=== PATIENT | female | born 1975 | race American Indian/Alaskan Native ===

== ENCOUNTER 2017-05-16 17:28 | Emergency (ER) | payer BC ==
--- NOTE | 2017-05-16 20:26 | Emergency Department Report ---
HPI - General Chief Complaint: Extremity Injury, Upper Time Seen by Provider: 05/16/17 20:13 - HPI HPI: Patient is a 41-year-old female with a History of TMJ who presents to ED complaining of lower jaw of the left. Patient states earlier this afternoon around 4 PM she was yawning when her left jaw locked into place. Patient states she has been unable to move eat talk normally. She states this has happened once last year and it was popped back into place. She denies any trauma, fall or injuries to the head or face. ED Past Medical Hx - Past Medical History Hx Hypertension: Yes Hx Diabetes: Yes (not on meds) Additional medical history: TMJ,elevated cholesterol - Surgical History Hx Appendectomy: Yes Additional Surgical History: hysterectomy - Social History Smoking Status: Never Smoker Substance Use Type: None - Medications Home Medications: Home Medications Medication Instructions Recorded Confirmed Last Taken Type HYDROcodone/APAP 5-325 [[place] 1 each PO Q6HR PRN #10 tablet 05/17/17 Unknown Rx 5/325] ED Review of Systems ROS: Stated complaint: DISLOCATED JAW Other details as noted in HPI Constitutional: denies: chills, fever Eyes: denies: eye pain, eye discharge, vision change ENT: denies: ear pain, throat pain Respiratory: denies: cough, shortness of breath, wheezing Cardiovascular: denies: chest pain, palpitations Endocrine: no symptoms reported Gastrointestinal: denies: abdominal pain, nausea, diarrhea Genitourinary: denies: urgency, dysuria, discharge Musculoskeletal: denies: back pain, joint swelling, arthralgia Skin: denies: rash, lesions Neurological: denies: headache, weakness, paresthesias Psychiatric: denies: anxiety, depression Hematological/Lymphatic: denies: easy bleeding, easy bruising Physical Exam - Physical Exam Vital Signs: Vital Signs 05/16/17 17:31 Temperature 98.3 F Pulse Rate 91 H Respiratory 18 Rate Blood Pressure 157/98 O2 Sat by Pulse 98 Oximetry Physical Exam: GENERAL: Alert and oriented x3, no apparent distress, Normal Gait, atraumatic. HEAD: Head is normocephalic and a-traumatic. EARS: symetrical, atraumatic, non tender, ear canal clear and moderate cerumen, tympanic membrance non inflamed. gross auditory nml bilaterally. NOSE: Nose symetrical, Nontender,Nares appeared normal. MOUTH:Mouth is well hydrated and without lesions. Tonsils nonerythematous or swollen, Uvula midline, Tongue not elevated. Mucous membranes are moist. Posterior pharynx clear, no exudate or lesions. Patent airways. Mild left joint tenderness. Jaw titled to right. NECK: Supple. Non edematous, No lymphadenopathy or thyromegaly. No C-spine tenderness LUNGS: Symetrical with respiration, No wheezing, no rales or crackles, CTAB. HEART: S1, S2 present, regular rate and rhythm without murmur, no rubs, no gallops. Non tender to palpation SKIN: Warm and dry, No lesions, No ulceration or induration present. ED Course Vital Signs 05/16/17 17:31 Temperature 98.3 F Pulse Rate 91 H Respiratory 18 Rate Blood Pressure 157/98 O2 Sat by Pulse 98 Oximetry ED Medical Decision Making - Radiology Data Radiology results: report reviewed, image reviewed FINAL REPORT PROCEDURE: CT FACIAL BONES WO CON TECHNIQUE: Computerized tomography of the facial bones and soft tissues with axial and coronal sections performed from the cranial aspect of the frontal sinuses to the caudal portion of the mandible without contrast material. HISTORY: left jaw pain/states dislocation COMPARISON: No prior studies are available for comparison. FINDINGS: Bones: No acute fracture. Paranasal sinuses: Mucosal thickening is noted involving bilateral maxillary sinuses with the polyp formation. Mild degree mucosal thickening is noted involving the right ethmoid air cells. Bilateral mastoid air cells are clear.. Soft tissues: No significant abnormality. Other: There is dislocation of left temporomandibular joint anteriorly without any evidence of underlying fracture.. IMPRESSION: Anterior dislocation of left temporomandibular joint. Bilateral maxillary and right ethmoid chronic sinusitis. Transcribed By: [facility] [place] Dictated By: PHILIPP HERNANDEZ Electronically Authenticated By: PHILIPP HERNANDEZ Signed Date/Time: 05/16/171903 - Medical Decision Making 41-year-old female presents with left anterior temporomandibular dislocation ED course: Patient received Tylenol with codeine. CT of the facial bone shows reported above She is not drooling, unable to fully open mouth, clear airways, no airway compromise. Mandibular reduction attempted by myself. Unable to reduce dislocation. Patient became very comfortable and did not want to continue with the reduction Discussed case with Dr. Jean Benitez attending physician. Patient will be moved to the main side for conscious sedation and reduction. Critical care attestation.: If time is entered above; I have spent that time in minutes in the direct care of this critically ill patient, excluding procedure time. ED Disposition Clinical Impression: Jaw dislocation Qualifiers: Encounter type: initial encounter Qualified Code(s): S03.00XA - Dislocation of jaw, unspecified side, initial encounter Disposition: TO HOME OR SELFCARE Is pt being admited?: No Does the pt Need Aspirin: No Condition: Stable Instructions: Mandibular Dislocation (ED) Additional Instructions: Please try and avoid opening your mouth wide or any large yawns. Return to the emergency department with any worsening of your symptoms or any acute distress. You have been prescribed a medication that is sedating and therefore should not be taken prior to driving, working, and responsible for children and in no way should be mixed with alcohol of any quantity. Prescriptions: HYDROcodone/APAP 5-325 [[place] 5/325] 1 each PO Q6HR PRN #10 tablet PRN Reason: Pain Referrals: AURELIO RIGGINS DDS [Staff Physician] - 3-5 Days JOE SALCIDO DDS [Referring] - 3-5 Days
[2017-05-16] MEDS ORDERED: TYLENOL/CODEINE PO ONE (20:29)
--- NOTE | 2017-05-16 21:48 | XRay Report ---
FINAL REPORT PROCEDURE: XR MANDIBLE PANOREX TECHNIQUE: Panorex view of the teeth, mouth, and mandible. HISTORY: jaw pain COMPARISON: No prior studies are available for comparison. FINDINGS: No acute fracture is seen. There is possible lucency surrounding the root of the 1st right mandibular premolar. IMPRESSION: There may be periapical lucency at the root of the right mandibular 1st premolar. If this is the site of pain, findings could be related to periapical abscess. Otherwise this may be a chronic appearance or artifactual.
[2017-05-16] MEDS ORDERED: NORCO 5/325 PO ONE (22:43)
--- NOTE | 2017-05-16 23:08 | Cat Scan Report ---
FINAL REPORT PROCEDURE: CT FACIAL BONES WO CON TECHNIQUE: Computerized tomography of the facial bones and soft tissues with axial and coronal sections performed from the cranial aspect of the frontal sinuses to the caudal portion of the mandible without contrast material. HISTORY: left jaw pain/states dislocation COMPARISON: No prior studies are available for comparison. FINDINGS: Bones: No acute fracture. Paranasal sinuses: Mucosal thickening is noted involving bilateral maxillary sinuses with the polyp formation. Mild degree mucosal thickening is noted involving the right ethmoid air cells. Bilateral mastoid air cells are clear.. Soft tissues: No significant abnormality. Other: There is dislocation of left temporomandibular joint anteriorly without any evidence of underlying fracture.. IMPRESSION: Anterior dislocation of left temporomandibular joint. Bilateral maxillary and right ethmoid chronic sinusitis.
[2017-05-17] MEDS ORDERED: KETALAR IV ONE (01:28)
[2017-05-17] MEDS ORDERED: DIPRIVAN 10 MG/ML IV ONE (01:29)
--- NOTE | 2017-05-17 01:30 | Emergency Department Report ---
HPI - General Chief Complaint: Extremity Injury, Upper Time Seen by Provider: 05/16/17 20:13 - HPI HPI: 41-year-old female presents to the emergency department with left-sided jaw and face pain and inability to fully close her mouth. She has a history of TMJ but also says that there is a history of some jaw dislocation that has been reduced multiple times in the past. This afternoon she was yawning and feels like it got stuck. She denies any neck pain, chest pain, shortness of breath but does have some trouble swallowing secondary to her inability to close her mouth. She did not take anything for her symptoms. Presentation. She has a history of diabetes, hypertension, hyperlipidemia. ED Past Medical Hx - Past Medical History Hx Hypertension: Yes Hx Diabetes: Yes (not on meds) Additional medical history: TMJ,elevated cholesterol - Surgical History Hx Appendectomy: Yes Additional Surgical History: hysterectomy - Social History Smoking Status: Never Smoker Substance Use Type: None - Medications Home Medications: Home Medications Medication Instructions Recorded Confirmed Last Taken Type HYDROcodone/APAP 5-325 [[place] 1 each PO Q6HR PRN #10 tablet 05/17/17 Unknown Rx 5/325] ED Review of Systems ROS: Stated complaint: DISLOCATED JAW Other details as noted in HPI Constitutional: denies: chills, fever Eyes: denies: eye pain, eye discharge, vision change ENT: denies: ear pain, throat pain Respiratory: denies: cough, shortness of breath, wheezing Cardiovascular: denies: chest pain, palpitations Endocrine: no symptoms reported Gastrointestinal: denies: abdominal pain, nausea, diarrhea Genitourinary: denies: urgency, dysuria, discharge Musculoskeletal: denies: back pain, joint swelling, arthralgia Skin: denies: rash, lesions Neurological: denies: headache, weakness, paresthesias Psychiatric: denies: anxiety, depression Hematological/Lymphatic: denies: easy bleeding, easy bruising Physical Exam - Physical Exam Vital Signs: Vital Signs 05/16/17 17:31 Temperature 98.3 F Pulse Rate 91 H Respiratory 18 Rate Blood Pressure 157/98 O2 Sat by Pulse 98 Oximetry Physical Exam: GENERAL: The patient is well-developed well-nourished. HENT: Normocephalic. Atraumatic. Patient has moist mucous membranes. She is unable to fully close her mouth and then remains about a 1-2 cm gap when she attempts to close her mouth. Unable to fully open her mouth as well. There is some tenderness to palpation towards the left mandibular joint with concern for dislocation. No drooling. EYES: Extraocular motions are intact. Pupils equal reactive to light bilaterally. NECK: Supple. Trachea is midline. CHEST/LUNGS: Clear to auscultation. There is no respiratory distress noted. HEART/CARDIOVASCULAR: Regular. There is no tachycardia. There is no murmur. ABDOMEN: Abdomen is soft, nontender. Patient has normal bowel sounds. SKIN: Skin is warm and dry. NEURO: The patient is awake, alert, and oriented. The patient is cooperative. The patient has no focal neurologic deficits. The patient has normal speech. MUSCULOSKELETAL: There is no tenderness or deformity. There is no limitation range of motion. There is no evidence of acute injury. ED Course Vital Signs 05/16/17 17:31 Temperature 98.3 F Pulse Rate 91 H Respiratory 18 Rate Blood Pressure 157/98 O2 Sat by Pulse 98 Oximetry ED Medical Decision Making - Radiology Data Radiology results: report reviewed, image reviewed interpreted by me: Mandibular x-rays shows appropriate reduction of the mandible within the temporomandibular joint. PROCEDURE: CT FACIAL BONES WO CON TECHNIQUE: Computerized tomography of the facial bones and soft tissues with axial and coronal sections performed from the cranial aspect of the frontal sinuses to the caudal portion of the mandible without contrast material. HISTORY: left jaw pain/states dislocation COMPARISON: No prior studies are available for comparison. FINDINGS: Bones: No acute fracture. Paranasal sinuses: Mucosal thickening is noted involving bilateral maxillary sinuses with the polyp formation. Mild degree mucosal thickening is noted involving the right ethmoid air cells. Bilateral mastoid air cells are clear.. Soft tissues: No significant abnormality. Other: There is dislocation of left temporomandibular joint anteriorly without any evidence of underlying fracture.. IMPRESSION: Anterior dislocation of left temporomandibular joint. Bilateral maxillary and right ethmoid chronic sinusitis. Transcribed By: [facility] [place] Dictated By: PHILIPP HERNANDEZ Electronically Authenticated By: PHILIPP HERNANDEZ Signed Date/Time: 05/16/17 190 - Medical Decision Making Patient presents with left mandibular pain and inability to fully open or close her mouth. She has previous history of multiple jaw dislocations. Originally the patient was seen by the mid-level provider but I saw the patient with her as well and then once again within the main emergency department. The original x-ray was read by radiology as normal. However the left mandible appeared slightly dislocated when I reviewed the x-ray and with the patient's clinical presentation we decided to do a CT scan of the face that resulted as a left anterior dislocation of the left temporomandibular joint. The patient could not tolerate any type of reduction without conscious sedation and was moved to the main emergency department side. As we were getting ready to get the medications for conscious sedation the joint appeared to spontaneously reduce. A repeat mandibular x-ray was done that showed appropriate position of the temporomandibular joint showing reduction. Patient will be discharged home with a very small amount of pain medication and referrals for oral maxillofacial surgery. - Differential Diagnosis TMJ, jaw dislocation, bruxism Critical Care Time: No Critical care attestation.: If time is entered above; I have spent that time in minutes in the direct care of this critically ill patient, excluding procedure time. ED Disposition Clinical Impression: Jaw dislocation Qualifiers: Encounter type: initial encounter Qualified Code(s): S03.00XA - Dislocation of jaw, unspecified side, initial encounter Disposition: - TO HOME OR SELFCARE Is pt being admited?: No Condition: Stable Instructions: Mandibular Dislocation (ED) Additional Instructions: Please try and avoid opening your mouth wide or any large yawns. Return to the emergency department with any worsening of your symptoms or any acute distress. You have been prescribed a medication that is sedating and therefore should not be taken prior to driving, working, and responsible for children and in no way should be mixed with alcohol of any quantity. Prescriptions: HYDROcodone/APAP 5-325 [[place] 5/325] 1 each PO Q6HR PRN #10 tablet PRN Reason: Pain Referrals: JOE SALCIDO DDS [Referring] - 3-5 Days AURELIO RIGGINS DDS [Staff Physician] - 3-5 Days Time of Disposition: 02:56
[2017-05-17 01:42] VITALS: BP 144/85
[2017-05-17] MEDS ORDERED: KETALAR ONE (01:44)
--- NOTE | 2017-05-17 02:49 | XRay Report ---
FINAL REPORT PROCEDURE: XR MANDIBLE 4+V TECHNIQUE: Mandible complete, minimum of 4 views, including PA, lateral, [place], and both oblique projections. HISTORY: reduction of left mandibular dislocation? COMPARISON: No prior studies are available for comparison. FINDINGS: Bone mineralization: Normal. Fractures: None. Paranasal sinuses: Clear. IMPRESSION: Normal Examination.
== END 2017-05-17 03:11 | disposition home or self-care (01) ==
LOC: ED 17:28
DX: S03.00XA Dislocation of jaw, unspecified side, initial encounter (principal); I10 Essential (primary) hypertension; E11.9 Type 2 diabetes mellitus without complications; E78.00 Pure hypercholesterolemia, unspecified; X50.1XXA Overexertion from prolonged static or awkward postures, initial encounter; Y93.89 Activity, other specified; Y92.89 Other specified places as the place of occurrence of the external cause; Y99.8 Other external cause status
CPT/HCPCS: 70110; 70355; 70486; 99284; J2704

== ENCOUNTER 2017-06-27 12:40 | Outpatient (CLI) | payer BC ==
--- NOTE | 2017-06-27 13:22 | XRay Report ---
ROUTINE CHEST, TWO VIEWS: HISTORY: Cough, fever. No comparison. Subtle patchy infiltrate is suspected in the lingula. The right lung is clear. No pleural effusion or pneumothorax. Normal heart and mediastinal structures. Normal bony thorax. IMPRESSION: Early lingular pneumonia.
== END 2017-06-27 12:41 | disposition home or self-care (01) ==
LOC: XRAY 12:40
PROVIDERS: ATTEND Nurse Practitioner
DX: J18.8 Other pneumonia, unspecified organism (principal); R50.9 Fever, unspecified
CPT/HCPCS: 71046

== ENCOUNTER 2017-06-27 22:52 | Inpatient (IN) | payer BC ==
[2017-06-28 00:22] LABS: Basophils # (Auto) 0.1 K/mm3 (0.0-0.1); Basophils % (Auto) 0.9 % (0.0-1.8); Eosinophils # (Auto) 0.1 K/mm3 (0.0-0.4); Eosinophils % (Auto) 1.3 % (0.0-4.3); Hematocrit 40.3 % (30.3-42.9); Hemoglobin 13.7 gm/dl (10.1-14.3); Lymphocytes # (Auto) 2.9 K/mm3 (1.2-5.4); Mean Corpuscular HGB Conc 34 % (30-34); Mean Corpuscular Hemoglobin 29 pg (28-32); Mean Corpuscular Volume 84 fl (79-97); Monocytes # (Auto) 0.8 K/mm3 (0.0-0.8); Monocytes % (Auto) 9.9 % (0.0-7.3); Platelet Count 219 K/mm3 (140-440); Red Cell Distribution Width 13.9 % (13.2-15.2)
--- NOTE | 2017-06-28 00:22 | XRay Report ---
FINAL REPORT EXAM: XR CHEST ROUTINE 2V HISTORY: Shortness of breath COMPARISON: None available. FINDINGS:: Frontal and lateral views of the chest obtained. Cardiac silhouette is within normal limits. Patchy airspace opacities left mid to lower lung compatible with pneumonia. No pleural effusion or pneumothorax. IMPRESSION:: Patchy airspace opacities left mid to lower lung.
[2017-06-28 00:33] LABS: BUN/Creatinine Ratio 14; Blood Urea Nitrogen 11 mg/dL (7-17); Hemolysis Index 6
[2017-06-28] MEDS ORDERED: DECADRON IM ONE (10:29)
[2017-06-28] MEDS ORDERED: DUONEB *Not for PRN Use IH ONE (10:34)
[2017-06-28] MEDS ORDERED: LEVAQUIN 750MG/150ML 750 MG/150 ML BAG IV ONE (12:29)
[2017-06-28] MEDS ORDERED: NACL 0.9% 1000 ML 1,000 ML IV ONE (12:29)
[2017-06-28] MEDS ORDERED: NORCO 7.5/325 PO ONE (12:30)
--- NOTE | 2017-06-28 12:39 | Emergency Department Report ---
ED Shortness of Breath HPI - General Chief Complaint: Dyspnea/Respdistress Stated Complaint: CHILLS; FEVER; SOB; SEEN EARLIER TODAY Time Seen by Provider: 06/28/17 10:13 Source: patient Mode of arrival: Ambulatory Limitations: No Limitations - History of Present Illness Initial Comments: Patient is a 41-year-old [place] female presenting with 3 days of cough, congestion and chest pain. Patient states chest pain is aching pain in the left side. Patient states she's had a cough that also is painful. Patient states she has a productive cough. Patient denies nausea vomiting diarrhea. Patient states she has had some subjective fevers but has not taken her temperature. Patient saw her primary care physician yesterday and was started on Levaquin presumptively. Patient states she is not feeling improved and came in for evaluation Severity: moderate Pain Scale: 7 - Related Data Previous Rx's Medication Instructions Recorded Last Taken Type HYDROcodone/APAP 5-325 [[place] 1 each PO Q6HR PRN #10 tablet 05/17/17 Unknown Rx 5/325] Allergies Allergy/AdvReac Type Severity Reaction Status Date / Time NSAIDS (Non-Steroidal Allergy Angioedema Verified 05/16/17 17:34 Anti-Inflamma ED Review of Systems ROS: Stated complaint: CHILLS; FEVER; SOB; SEEN EARLIER TODAY Other details as noted in HPI Comment: All other systems reviewed and negative ED Past Medical Hx - Past Medical History Previous Medical History?: Yes Hx Hypertension: Yes Hx Diabetes: Yes (not on meds) Additional medical history: TMJ,elevated cholesterol - Surgical History Past Surgical History?: Yes Hx Appendectomy: Yes Additional Surgical History: hysterectomy 2011 - Social History Smoking Status: Never Smoker Substance Use Type: None - Medications Home Medications: Home Medications Medication Instructions Recorded Confirmed Last Taken Type HYDROcodone/APAP 5-325 [[place] 1 each PO Q6HR PRN #10 tablet 05/17/17 Unknown Rx 5/325] ED Physical Exam - General Limitations: No Limitations General appearance: alert, in no apparent distress - Head Head exam: Present: atraumatic, normocephalic - Eye Eye exam: Present: normal appearance - ENT ENT exam: Present: mucous membranes moist - Neck Neck exam: Present: normal inspection - Respiratory Respiratory exam: Present: normal lung sounds bilaterally, rhonchi. Absent: respiratory distress, wheezes, rales - Cardiovascular Cardiovascular Exam: Present: regular rate, normal rhythm. Absent: systolic murmur, diastolic murmur, rubs, gallop - GI/Abdominal GI/Abdominal exam: Present: soft, normal bowel sounds. Absent: distended, tenderness, guarding - Extremities Exam Extremities exam: Present: normal inspection - Back Exam Back exam: Present: normal inspection - Neurological Exam Neurological exam: Present: alert, oriented X3 - Psychiatric Psychiatric exam: Present: normal affect, normal mood - Skin Skin exam: Present: warm, dry, intact, normal color. Absent: rash ED Course Vital Signs 06/27/17 06/28/17 06/28/17 23:44 03:50 10:56 Temperature 99 F 99.4 F Pulse Rate 100 H 98 H Pulse Rate [ Bilateral Throughout] Respiratory 18 14 Rate Respiratory Rate [Bilateral Throughout] Blood Pressure 147/97 145/86 O2 Sat by Pulse 95 95 96 Oximetry 06/28/17 06/28/17 06/28/17 10:58 11:00 11:12 Temperature 99.4 F Pulse Rate 90 Pulse Rate [ Bilateral Throughout] Respiratory 29 H 26 H Rate Respiratory Rate [Bilateral Throughout] Blood Pressure 126/74 O2 Sat by Pulse 90 95 Oximetry 06/28/17 06/28/17 06/28/17 11:15 11:31 11:44 Temperature Pulse Rate 90 99 H Pulse Rate [ 90 Bilateral Throughout] Respiratory 26 H 31 H Rate Respiratory 29 H Rate [Bilateral Throughout] Blood Pressure 127/76 127/76 O2 Sat by Pulse 88 89 Oximetry 06/28/17 06/28/17 06/28/17 11:45 11:56 12:00 Temperature Pulse Rate 90 89 Pulse Rate [ 92 H Bilateral Throughout] Respiratory 28 H 27 H Rate Respiratory 28 H Rate [Bilateral Throughout] Blood Pressure 127/76 123/79 O2 Sat by Pulse 91 90 Oximetry ED Medical Decision Making - Lab Data Result diagrams: 06/28/17 00:13 06/28/17 00:13 Lab Results 06/28/17 06/28/17 06/28/17 Range/Units 00:13 00:13 00:13 WBC 8.3 (4.5-11.0) K/mm3 RBC 4.80 (3.65-5.03) M/mm3 Hgb 13.7 (10.1-14.3) gm/dl Hct 40.3 (30.3-42.9) % MCV 84 (79-97) fl MCH 29 (28-32) pg MCHC 34 (30-34) % RDW 13.9 (13.2-15.2) % Plt Count 219 (140-440) K/mm3 Lymph % (Auto) 35.0 (13.4-35.0) % [place] % (Auto) 9.9 H (0.0-7.3) % Eos % (Auto) 1.3 (0.0-4.3) % Baso % (Auto) 0.9 (0.0-1.8) % Lymph # 2.9 (1.2-5.4) K/mm3 [place] # 0.8 (0.0-0.8) K/mm3 Eos # 0.1 (0.0-0.4) K/mm3 Baso # 0.1 (0.0-0.1) K/mm3 Seg Neutrophils % 52.9 (40.0-70.0) % Seg Neutrophils # 4.4 (1.8-7.7) K/mm3 Sodium 132 L (137-145) mmol/L Potassium 3.8 (3.6-5.0) mmol/L Chloride 93.7 L (98-107) mmol/L Carbon Dioxide 23 (22-30) mmol/L Anion Gap 19 mmol/L BUN 11 (7-17) mg/dL Creatinine 0.8 (0.7-1.2) mg/dL Estimated GFR > 60 ml/min BUN/Creatinine Ratio 14 % Glucose 108 H (65-100) mg/dL Calcium 9.0 (8.4-10.2) mg/dL HCG, Qual Negative (Negative) - Radiology Data Radiology results: report reviewed LLL infiltration - Medical Decision Making Patient is a 41-year-old female who is presenting with shortness of breath and chest discomfort on the left side. Patient was diagnosed with pneumonia here in the hospital. Patient Levaquin for the past 2 days as an outpatient for suspected pneumonia by her primary care physician. Patient initially did have a heart rate above 90 however respiratory rate did not elevate until 11 AM. Patient with ambulation has a O2 sat drops into the high 80s. Patient was placed on sepsis protocol was given IV fluids dose Levaquin and blood cultures and lactic acid been ordered. Patient will be admitted to the hospitalist Dr Potter. Critical care attestation.: If time is entered above; I have spent that time in minutes in the direct care of this critically ill patient, excluding procedure time. ED Disposition Clinical Impression: Pneumonia Qualifiers: Pneumonia type: due to unspecified organism Laterality: left Lung location: lower lobe of lung Qualified Code(s): J18.1 - Lobar pneumonia, unspecified organism Disposition: OP ADMIT IP TO THIS HOSP Is pt being admited?: Yes Does the pt Need Aspirin: No Condition: Stable Instructions: Bacterial Pneumonia (ED) Referrals: ZANE LOZANO NP [Primary Care Provider] - 3-5 Days
--- NOTE | 2017-06-28 23:06 | History and Physical Report ---
History of Present Illness Date of examination: 06/28/17 Date of admission: 06/28/17 12:43 Chief complaint: Chief complaint: Cough and fever History of present illness: History of Present Illness 41-year-old female with past medical history of hypertension and borderline diabetes comes in for cough congestion and fever of 3 days' duration. Patient has a right-sided chest pain secondary to cough. Patient has productive cough. Patient saw her primary care physician and was started on Levaquin yesterday. Vision feels the same. No body aches. Past Medical History Previous Medical History?: Yes Hx Hypertension: Yes Hx Diabetes: Borderline Additional medical history: TMJ,elevated cholesterol Surgical History Past Surgical History?: Yes Hx Appendectomy: Yes Additional Surgical History: hysterectomy 2011 Social History Smoking Status: Never Smoker Substance Use Type: None Family history Hypertension - Medications Home Medications: Home Medications Medication Instructions Recorded Confirmed Last Taken Type HYDROcodone/APAP 5-325 [[place] 1 each PO Q6HR PRN #10 tablet 05/17/17 Unknown Rx 5/325] Medications and Allergies Allergies Allergy/AdvReac Type Severity Reaction Status Date / Time NSAIDS (Non-Steroidal Allergy Angioedema Verified 05/16/17 17:34 Anti-Inflamma Home Medications Medication Instructions Recorded Confirmed Last Taken Type Levocetirizine Dihydrochloride 5 mg PO QHS 06/28/17 06/28/17 06/27/17 History [Xyzal] Metformin HCl [Metformin HCl ER] 500 mg PO BID 06/28/17 06/28/17 06/27/17 History Montelukast [Singulair] 10 mg PO QPM 06/28/17 06/28/17 06/27/17 History Ramipril 2.5 mg PO DAILY 06/28/17 06/28/17 06/27/17 History Ranitidine HCl [Zantac 300 MG TAB] 300 mg PO QPM 06/28/17 06/28/17 06/27/17 History Rosuvastatin (Nf) [Crestor] 10 mg PO QHS 06/28/17 06/28/17 06/27/17 History amLODIPine [Norvasc] 10 mg PO DAILY 06/28/17 06/28/17 06/27/17 History Active Meds: Active Medications Pneumococcal Polyvalent Vaccine (Pneumovax 23) 0.5 ml IM .ONCE ONE Stop: 06/29/17 12:01 Review of Systems All systems: negative Constitutional: fever, chills, fatigue, poor appetite Ears, nose, mouth and throat: no dysphagia, no hoarseness, no sore throat, no swelling in mouth Breasts: deferred Cardiovascular: no chest pain, no orthopnea, no palpitations, no rapid/ irregular heart beat, no edema, no syncope, no lightheadedness, no shortness of breath Respiratory: pain on inspiration, no cough with sputum, no congestion, no wheezing Genitourinary Female: no dysuria, no urinary frequency, no urgency Menstruation: currently menstrual Rectal: no pain Musculoskeletal: no neck stiffness, no neck pain, no shooting arm pain, no arm numbness/tingling, no low back pain Integumentary: no rash, no pruritis, no redness, no sores, no wounds Neurological: no tingling, no seizures, no syncope Psychiatric: no anxiety, no memory loss, no change in sleep habits Endocrine: no cold intolerance, no heat intolerance, no polyphagia, no excessive thirst Hematologic/Lymphatic: no easy bruising, no easy bleeding Allergic/Immunologic: wheezing, no urticaria, no allergic rhinitis Exam - Constitutional Vitals: Temp Pulse Resp BP Pulse Ox 99.4 F 86 28 H 119/64 98 06/28/17 10:58 06/28/17 15:00 06/28/17 15:00 06/28/17 15:00 06/28/17 15:00 General appearance: Present: no acute distress, well-nourished - EENT Eyes: Present: PERRL ENT: hearing intact, clear oral mucosa - Neck Neck: Present: supple, normal ROM - Respiratory Respiratory effort: normal Respiratory: bilateral: CTA, wheezing - Cardiovascular Heart rate: 76 Rhythm: regular Heart Sounds: Present: S1 & S2. Absent: rub, click - Extremities Extremities: no ischemia, pulses intact, pulses symmetrical, No edema Peripheral Pulses: within normal limits - Abdominal General gastrointestinal: Present: soft, non-tender, non-distended, normal bowel sounds Female genitourinary: Present: normal - Rectal Rectal Exam: deferred - Integumentary Integumentary: Present: clear, warm, dry - Musculoskeletal Musculoskeletal: gait normal, strength equal bilaterally - Psychiatric Psychiatric: appropriate mood/affect, intact judgment & insight - Neurologic Neurologic: CNII-XII intact, moves all extremities - Allied Health Allied health notes reviewed: nursing, case management Results - Labs CBC & Chem 7: 06/28/17 00:13 06/28/17 00:13 Labs: Laboratory Last Values WBC 8.3 K/mm3 (4.5-11.0) 06/28/17 00:13 RBC 4.80 M/mm3 (3.65-5.03) 06/28/17 00:13 Hgb 13.7 gm/dl (10.1-14.3) 06/28/17 00:13 Hct 40.3 % (30.3-42.9) 06/28/17 00:13 MCV 84 fl (79-97) 06/28/17 00:13 MCH 29 pg (28-32) 06/28/17 00:13 MCHC 34 % (30-34) 06/28/17 00:13 RDW 13.9 % (13.2-15.2) 06/28/17 00:13 Plt Count 219 K/mm3 (140-440) 06/28/17 00:13 Lymph % (Auto) 35.0 % (13.4-35.0) 06/28/17 00:13 [place] % (Auto) 9.9 % (0.0-7.3) H 06/28/17 00:13 Eos % (Auto) 1.3 % (0.0-4.3) 06/28/17 00:13 Baso % (Auto) 0.9 % (0.0-1.8) 06/28/17 00:13 Lymph # 2.9 K/mm3 (1.2-5.4) 06/28/17 00:13 [place] # 0.8 K/mm3 (0.0-0.8) 06/28/17 00:13 Eos # 0.1 K/mm3 (0.0-0.4) 06/28/17 00:13 Baso # 0.1 K/mm3 (0.0-0.1) 06/28/17 00:13 Seg Neutrophils % 52.9 % (40.0-70.0) 06/28/17 00:13 Seg Neutrophils # 4.4 K/mm3 (1.8-7.7) 06/28/17 00:13 Sodium 132 mmol/L (137-145) L 06/28/17 00:13 Potassium 3.8 mmol/L (3.6-5.0) 06/28/17 00:13 Chloride 93.7 mmol/L (98-107) L 06/28/17 00:13 Carbon Dioxide 23 mmol/L (22-30) 06/28/17 00:13 Anion Gap 19 mmol/L 06/28/17 00:13 BUN 11 mg/dL (7-17) 06/28/17 00:13 Creatinine 0.8 mg/dL (0.7-1.2) 06/28/17 00:13 Estimated GFR > 60 ml/min 06/28/17 00:13 BUN/Creatinine Ratio 14 % 06/28/17 00:13 Glucose 108 mg/dL (65-100) H 06/28/17 00:13 Lactic Acid 1.00 mmol/L (0.7-2.0) 06/28/17 15:18 Calcium 9.0 mg/dL (8.4-10.2) 06/28/17 00:13 HCG, Qual Negative (Negative) 06/28/17 00:13 - Imaging and Cardiology Chest x-ray: report reviewed Imaging and Cardiology: Chest x-ray Patchy airspace opacities left mid to lower lung compatible with pneumonia. No pleural effusion or pneumothorax Assessment and Plan Advance Directives: Yes (full code) VTE prophylaxis?: Chemical Plan of care discussed with patient/family: Yes - Patient Problems (1) Left lower lobe pneumonia Current Visit: Yes Status: Acute Qualifiers: Pneumonia type: due to unspecified organism Qualified Code(s): J18.1 - Lobar pneumonia, unspecified organism Plan to address problem: Patient initiated on IV Levaquin. Also nebulizer treatments. No steroids. (2) Hypertension Current Visit: Yes Status: Chronic Qualifiers: Hypertension type: essential hypertension Qualified Code(s): I10 - Essential (primary) hypertension Plan to address problem: Patient not on any blood pressure medicines. We will initiate blood pressure medicines if necessary (3) T2DM (type 2 diabetes mellitus) Current Visit: Yes Status: Chronic Qualifiers: Diabetes mellitus group home insulin use: without computer terminal operator use Plan to address problem: Borderline. Check A1c no coverage (4) Hyperlipidemia Current Visit: Yes Status: Chronic Qualifiers: Hyperlipidemia type: mixed hyperlipidemia Qualified Code(s): E78.2 - Mixed hyperlipidemia Plan to address problem: statins initiated (5) DVT prophylaxis Current Visit: Yes Status: Acute Plan to address problem: On heparin
[2017-06-28] MEDS ORDERED: MORPHINE IV PRN (23:19)
[2017-06-28] MEDS ORDERED: ZOFRAN IV PRN (23:19)
[2017-06-28] MEDS ORDERED: TYLENOL PO PRN (23:19)
[2017-06-28] MEDS ORDERED: AMBIEN PO PRN (23:19)
[2017-06-28] MEDS ORDERED: DILAUDID IV PRN (23:19)
[2017-06-28] MEDS ORDERED: DUONEB *Not for PRN Use IH (23:20)
[2017-06-28] MEDS ORDERED: PROVENTIL IH PRN (23:26)
[2017-06-29] MEDS: SODIUM CHLORIDE FLUSH SYRINGE 10 ML IV PRN (00:10)
[2017-06-29] MEDS: HEPARIN SUB-Q SCH ×3 (06:59→21:50)
[2017-06-29 07:27] LABS: Basophils % (Auto) 0.4 % (0.0-1.8); Hematocrit 38.7 % (30.3-42.9); Hemoglobin 12.9 gm/dl (10.1-14.3); Lymphocytes % (Auto) 29.3 % (13.4-35.0); Mean Corpuscular HGB Conc 33 % (30-34); Mean Corpuscular Hemoglobin 28 pg (28-32); Mean Corpuscular Volume 84 fl (79-97); Monocytes # (Auto) 0.6 K/mm3 (0.0-0.8); Monocytes % (Auto) 8.3 % (0.0-7.3); Platelet Count 227 K/mm3 (140-440); Red Cell Distribution Width 14.3 % (13.2-15.2)
[2017-06-29 07:41] LABS: Alanine Aminotransferase 20 units/L (7-56); Albumin 3.9 g/dL (3.9-5); BUN/Creatinine Ratio 18; Blood Urea Nitrogen 11 mg/dL (7-17); Calcium 9.2 mg/dL (8.4-10.2); Hemolysis Index 6
[2017-06-29] MEDS: DUONEB *Not for PRN Use IH SCH ×4 (08:15→20:29)
--- NOTE | 2017-06-29 08:41 | Progress Note ---
Assessment and Plan Assessment and plan: Pneumonia left lower lung. Continue Levaquin iv. Blood cultures drawn. Hyponatremia. This is now resolved. Sodium 139 now. Hypertension. BP stable on Norvasc Borderline diabetes mellitus. A1C is 6.1. She is on Metformin Obesity. counseled on diet and exercise DVT prophylaxis: On Heparin. History Interval history: Less shortness of breath, still coughing No more fever Hospitalist Physical - Physical exam Narrative exam: Gen appearance: Not in acute distress, lying in bed, obese HEENT:Normocephalic, atraumatic Neck:supple, no JVD Lungs: Crackles left lower lung field , no wheeze Heart: S1 and S2 regular, no murmurs, rubs or gallop Abdomen: soft, non tender, non distended, normal bowel sounds Ext: No edema, no clubbing, no cyanosis. Neuro: Awake, alert, oriented x 3, no focal neurological signs. - Constitutional Vitals: Temp Pulse Resp BP Pulse Ox 98.5 F 79 18 129/80 92 06/29/17 04:31 06/29/17 08:00 06/29/17 04:31 06/29/17 04:31 06/29/17 04:31 General appearance: Present: no acute distress, obese Results - Labs CBC & Chem 7: 06/29/17 06:44 06/29/17 06:44 Labs: Laboratory Last Values WBC 6.9 K/mm3 (4.5-11.0) 06/29/17 06:44 RBC 4.60 M/mm3 (3.65-5.03) 06/29/17 06:44 Hgb 12.9 gm/dl (10.1-14.3) 06/29/17 06:44 Hct 38.7 % (30.3-42.9) 06/29/17 06:44 MCV 84 fl (79-97) 06/29/17 06:44 MCH 28 pg (28-32) 06/29/17 06:44 MCHC 33 % (30-34) 06/29/17 06:44 RDW 14.3 % (13.2-15.2) 06/29/17 06:44 Plt Count 227 K/mm3 (140-440) 06/29/17 06:44 Lymph % (Auto) 29.3 % (13.4-35.0) 06/29/17 06:44 [place] % (Auto) 8.3 % (0.0-7.3) H 06/29/17 06:44 Eos % (Auto) 0.0 % (0.0-4.3) 06/29/17 06:44 Baso % (Auto) 0.4 % (0.0-1.8) 06/29/17 06:44 Lymph # 2.0 K/mm3 (1.2-5.4) 06/29/17 06:44 [place] # 0.6 K/mm3 (0.0-0.8) 06/29/17 06:44 Eos # 0.0 K/mm3 (0.0-0.4) 06/29/17 06:44 Baso # 0.0 K/mm3 (0.0-0.1) 06/29/17 06:44 Seg Neutrophils % 62.0 % (40.0-70.0) 06/29/17 06:44 Seg Neutrophils # 4.3 K/mm3 (1.8-7.7) 06/29/17 06:44 Sodium 139 mmol/L (137-145) D 06/29/17 06:44 Potassium 3.8 mmol/L (3.6-5.0) 06/29/17 06:44 Chloride 102.6 mmol/L (98-107) 06/29/17 06:44 Carbon Dioxide 24 mmol/L (22-30) 06/29/17 06:44 Anion Gap 16 mmol/L 06/29/17 06:44 BUN 11 mg/dL (7-17) 06/29/17 06:44 Creatinine 0.6 mg/dL (0.7-1.2) L 06/29/17 06:44 Estimated GFR > 60 ml/min 06/29/17 06:44 BUN/Creatinine Ratio 18 % 06/29/17 06:44 Glucose 130 mg/dL (65-100) H 06/29/17 06:44 POC Glucose 130 (70-105) H 06/29/17 07:03 Hemoglobin A1c 6.1 % (4-6) H 06/29/17 06:44 Lactic Acid 1.00 mmol/L (0.7-2.0) 06/28/17 15:18 Calcium 9.2 mg/dL (8.4-10.2) 06/29/17 06:44 Total Bilirubin 0.20 mg/dL (0.1-1.2) 06/29/17 06:44 AST 29 units/L (5-40) 06/29/17 06:44 ALT 20 units/L (7-56) 06/29/17 06:44 Alkaline Phosphatase 49 units/L (35-129) 06/29/17 06:44 Total Protein 7.4 g/dL (6.3-8.2) 06/29/17 06:44 Albumin 3.9 g/dL (3.9-5) 06/29/17 06:44 Albumin/Globulin Ratio 1.1 % 06/29/17 06:44 HCG, Qual Negative (Negative) 06/28/17 00:13
[2017-06-29] MEDS: HumaLOG SUB-Q SCH ×4 (10:05→23:36)
[2017-06-29] MEDS: CLARITIN PO SCH (10:06)
[2017-06-29] MEDS: GLUCOPHAGE XR PO SCH ×2 (10:06→16:05)
[2017-06-29] MEDS: LEVAQUIN 750MG/150ML 750 MG/150 ML BAG IV SCH (10:07)
[2017-06-29] MEDS: NORVASC PO SCH (10:07)
[2017-06-29] MEDS: PEPCID PO SCH ×2 (10:07→21:50)
[2017-06-29] MEDS: ZESTRIL PO SCH (10:08)
[2017-06-29] MEDS: PERCOCET 5/325 PO PRN ×2 (11:00→21:50)
[2017-06-29] MEDS ORDERED: PNEUMOVAX 23 IM ONE (12:00)
[2017-06-29] MEDS ORDERED: DUONEB *Not for PRN Use IH SCH (14:00)
[2017-06-29] MEDS: SODIUM CHLORIDE FLUSH SYRINGE 10 ML IV SCH ×2 (14:29→21:55)
[2017-06-29] MEDS: ROBITUSSIN AC PO PRN ×2 (14:31→21:49)
[2017-06-29] MEDS: SINGULAIR PO SCH (17:00)
[2017-06-30] MEDS: DUONEB *Not for PRN Use IH SCH ×4 (03:46→20:46)
[2017-06-30] MEDS: HEPARIN SUB-Q SCH ×3 (06:06→21:22)
[2017-06-30] MEDS: LEVAQUIN 750MG/150ML 750 MG/150 ML BAG IV SCH (09:26)
[2017-06-30] MEDS: HumaLOG SUB-Q SCH ×4 (09:27→21:28)
[2017-06-30] MEDS: ZESTRIL PO SCH (09:28)
[2017-06-30] MEDS: PEPCID PO SCH ×2 (09:29→21:22)
[2017-06-30] MEDS: NORVASC PO SCH (09:29)
[2017-06-30] MEDS: GLUCOPHAGE XR PO SCH ×2 (09:29→19:09)
[2017-06-30] MEDS: CLARITIN PO SCH (09:29)
[2017-06-30] MEDS: SODIUM CHLORIDE FLUSH SYRINGE 10 ML IV PRN (09:30)
[2017-06-30] MEDS: PERCOCET 5/325 PO PRN ×2 (09:44→19:44)
[2017-06-30] MEDS: ROBITUSSIN AC PO PRN ×3 (09:45→23:25)
--- NOTE | 2017-06-30 13:46 | XRay Report ---
CHEST 2 VIEWS INDICATION: Pneumonia, chest pain. COMPARISON: 06/27/2017 FINDINGS: Frontal and lateral chest radiographs demonstrate mild residual left mid to lower lung densities/infiltrates, possibly atelectasis. Right mid to low lower lung horizontal atelectatic densities are new. No significant pleural effusions. Stable slight exaggerated cardiomediastinal silhouette. Intact bones. CONCLUSION: Mild interval radiographic variation with now atelectatic appearance to mid lower lung zones bilaterally, as described. Please correlate. Thank you for the opportunity to participate in this patient's care.
--- NOTE | 2017-06-30 13:53 | Progress Note ---
Hospitalist Physical - Constitutional Vitals: Temp Pulse Resp BP Pulse Ox 98.7 F 89 20 127/82 91 06/30/17 12:31 06/30/17 12:31 06/30/17 08:41 06/30/17 12:31 06/30/17 08:00 General appearance: Present: no acute distress, obese Results - Labs CBC & Chem 7: 06/29/17 06:44 06/29/17 06:44 Labs: Laboratory Last Values WBC 6.9 K/mm3 (4.5-11.0) 06/29/17 06:44 RBC 4.60 M/mm3 (3.65-5.03) 06/29/17 06:44 Hgb 12.9 gm/dl (10.1-14.3) 06/29/17 06:44 Hct 38.7 % (30.3-42.9) 06/29/17 06:44 MCV 84 fl (79-97) 06/29/17 06:44 MCH 28 pg (28-32) 06/29/17 06:44 MCHC 33 % (30-34) 06/29/17 06:44 RDW 14.3 % (13.2-15.2) 06/29/17 06:44 Plt Count 227 K/mm3 (140-440) 06/29/17 06:44 Lymph % (Auto) 29.3 % (13.4-35.0) 06/29/17 06:44 [place] % (Auto) 8.3 % (0.0-7.3) H 06/29/17 06:44 Eos % (Auto) 0.0 % (0.0-4.3) 06/29/17 06:44 Baso % (Auto) 0.4 % (0.0-1.8) 06/29/17 06:44 Lymph # 2.0 K/mm3 (1.2-5.4) 06/29/17 06:44 [place] # 0.6 K/mm3 (0.0-0.8) 06/29/17 06:44 Eos # 0.0 K/mm3 (0.0-0.4) 06/29/17 06:44 Baso # 0.0 K/mm3 (0.0-0.1) 06/29/17 06:44 Seg Neutrophils % 62.0 % (40.0-70.0) 06/29/17 06:44 Seg Neutrophils # 4.3 K/mm3 (1.8-7.7) 06/29/17 06:44 Sodium 139 mmol/L (137-145) D 06/29/17 06:44 Potassium 3.8 mmol/L (3.6-5.0) 06/29/17 06:44 Chloride 102.6 mmol/L (98-107) 06/29/17 06:44 Carbon Dioxide 24 mmol/L (22-30) 06/29/17 06:44 Anion Gap 16 mmol/L 06/29/17 06:44 BUN 11 mg/dL (7-17) 06/29/17 06:44 Creatinine 0.6 mg/dL (0.7-1.2) L 06/29/17 06:44 Estimated GFR > 60 ml/min 06/29/17 06:44 BUN/Creatinine Ratio 18 % 06/29/17 06:44 Glucose 130 mg/dL (65-100) H 06/29/17 06:44 POC Glucose 95 (70-105) 06/30/17 12:05 Hemoglobin A1c 6.1 % (4-6) H 06/29/17 06:44 Lactic Acid 1.00 mmol/L (0.7-2.0) 06/28/17 15:18 Calcium 9.2 mg/dL (8.4-10.2) 06/29/17 06:44 Total Bilirubin 0.20 mg/dL (0.1-1.2) 06/29/17 06:44 AST 29 units/L (5-40) 06/29/17 06:44 ALT 20 units/L (7-56) 06/29/17 06:44 Alkaline Phosphatase 49 units/L (35-129) 06/29/17 06:44 Total Protein 7.4 g/dL (6.3-8.2) 06/29/17 06:44 Albumin 3.9 g/dL (3.9-5) 06/29/17 06:44 Albumin/Globulin Ratio 1.1 % 06/29/17 06:44 HCG, Qual Negative (Negative) 06/28/17 00:13
[2017-06-30] MEDS: SINGULAIR PO SCH (19:08)
[2017-06-30] MEDS: SODIUM CHLORIDE FLUSH SYRINGE 10 ML IV SCH ×2 (19:09→21:22)
[2017-07-01] MEDS: DUONEB *Not for PRN Use IH SCH ×2 (02:42→08:10)
[2017-07-01] MEDS: HEPARIN SUB-Q SCH (05:54)
[2017-07-01] MEDS: ROBITUSSIN AC PO PRN (06:00)
[2017-07-01] MEDS: NORVASC PO SCH (09:36)
[2017-07-01] MEDS: PEPCID PO SCH (09:36)
[2017-07-01] MEDS: ZESTRIL PO SCH (09:36)
[2017-07-01 09:37] VITALS: BP 138/75
[2017-07-01] MEDS: CLARITIN PO SCH (09:37)
[2017-07-01] MEDS: GLUCOPHAGE XR PO SCH (09:44)
[2017-07-01] MEDS: HumaLOG SUB-Q SCH ×2 (09:52→13:17)
[2017-07-01] MEDS: SODIUM CHLORIDE FLUSH SYRINGE 10 ML IV SCH (09:52)
[2017-07-01] MEDS ORDERED: LEVAQUIN PO SCH (10:00)
--- NOTE | 2017-07-01 10:43 | Discharge Summary ---
Providers - Providers Date of Admission: 06/28/17 12:43 Date of discharge: 07/01/17 Attending physician: INDERJIT PRATER Primary care physician: ZANE LOZANO NP Hospitalization Condition: Fair Disposition: DC-01 TO HOME OR SELFCARE Exam - Constitutional Vitals: Temp Pulse Resp BP Pulse Ox 98.3 F 89 18 138/75 97 07/01/17 04:00 07/01/17 08:31 07/01/17 08:31 07/01/17 09:36 07/01/17 08:13 Plan Activity: advance as tolerated Diet: low fat, low cholesterol, low salt, diabetic Additional Instructions: 1.Follow up with PCP in 1 week. Follow up with: ZANE LOZANO NP [Primary Care Provider] - 3-5 Days Prescriptions: guaiFENesin/CODEINE [Robitussin AC] 10 ml PO Q4H PRN #1 bottle PRN Reason: Cough Levofloxacin [Levaquin TAB] 750 mg PO Q24HR #5 tablet
== END 2017-07-01 13:15 | disposition home or self-care (01) | DRG 194 ==
LOC: ED 22:52 → 4A 06-28 12:43
PROVIDERS: ADMIT Internal Medicine; ATTEND Internal Medicine
PROC: 3E0234Z Introduction of Serum, Toxoid and Vaccine into Muscle, Percutaneous Approach (ICD-10-PCS; principal; 2017-06-29)
DX: J18.1 Lobar pneumonia, unspecified organism (principal); E87.1 Hypo-osmolality and hyponatremia; I10 Essential (primary) hypertension; E78.5 Hyperlipidemia, unspecified; E66.9 Obesity, unspecified; E11.9 Type 2 diabetes mellitus without complications; Z90.710 Acquired absence of both cervix and uterus; Z90.49 Acquired absence of other specified parts of digestive tract; Z68.36 Body mass index [BMI] 36.0-36.9, adult; Z23 Encounter for immunization
CPT/HCPCS: 36415; 71046; 80048; 80053; 82140; 82962; 83036; 84703; 85025; 87040; 90732; 93005; 93010; 94640; 94760; 96365; 96372; 96375; A9270-GY; J1100; J1644; J1956; J2920; J7030

== ENCOUNTER 2018-01-12 07:20 | Outpatient (CLI) | payer BC ==
--- NOTE | 2018-01-15 08:32 | Mammography Report ---
BILATERAL DIGITAL SCREENING MAMMOGRAM with CAD: 01/12/18 07:20:00 CLINICAL: Routine screening. COMPARISON:None available. FINDINGS: The breasts are almost entirely fatty. No mass, architectural distortion or suspicious calcifications. IMPRESSION: No mammographic evidence of malignancy. BI-RADS CATEGORY: 2 -- Benign RECOMMENDATION: Routine mammographic screening in one year. COMMENT: Patient follow-up letters are generated by our [employer] application.
== END 2018-01-12 07:21 | disposition home or self-care (01) ==
LOC: MAMMO 07:20
PROVIDERS: ATTEND Obstetrics & Gynecology
DX: Z12.31 Encounter for screening mammogram for malignant neoplasm of breast (principal); I10 Essential (primary) hypertension; E11.9 Type 2 diabetes mellitus without complications; E78.5 Hyperlipidemia, unspecified
CPT/HCPCS: 77067

== ENCOUNTER 2019-02-08 08:06 | Outpatient (CLI) | payer BC ==
--- NOTE | 2019-02-08 09:21 | Ultrasound Report ---
LIMITED RUQ ABDOMINAL ULTRASOUND INDICATION: K21.0 GASTRO-ESOPHAGEAL REFLUX DISEASE WITH ESOPHAGITIS/R10.11RUQ. Right upper quadrant pain. COMPARISON: No relevant prior imaging study available. FINDINGS: Pancreas: Visualized portions show no significant abnormality. Abdominal Aorta: No significant abnormality. IVC: No significant abnormality. Liver: The liver measures 18.5 cm in length. There is mild diffuse fatty infiltration throughout the liver. No focal mass.. Normal hepatopedal blood flow in the main portal vein. Gallbladder: A few small gallstones measuring up to 5 mm are identified in the gallbladder. No biliar y dilatation or inflammation.. Bile ducts: No significant abnormality. Common bile duct measures 5.7 mm. Right kidney: No significant abnormality visualized.. Free fluid: None. Additional Findings: None. IMPRESSION: Mild hepatomegaly with diffuse fatty infiltration. Cholelithiasis.. Signer Name: Jerome Westbrook Jr, MD Signed: 02/08/2019 9:16 AM Workstation Name: [id number]
[2019-02-08] MEDS ORDERED: SINCALIDE 5 MCG VIAL IV ONE (09:29)
[2019-02-08] MEDS ORDERED: WATER FOR INJ Sterile (PF) 10 ML ONE (09:32)
--- NOTE | 2019-02-08 11:50 | Nuclear Medicine Report ---
NUCLEAR MEDICINE HEPATOBILIARY SCAN INDICATION: R10.11 RUQ ABDOMINAL PAIN/R80.20 GALLSTONES/K22.0GASTRO-ESOPHAGEA. TECHNIQUE: Radiotracer: Tc-99m mebrofenin (by IV): 5.2 mCi. Gallbladder Stimulant: 2.16 mcg of CCK FINDINGS: Hepatic activity: Normal. Biliary activity: Normal. Common bile duct activity at 12 minutes. Gallbladder activity: Normal at 12 minutes. Small bowel activity: Normal at 12 minutes. The gallbladder ejection fraction is decreased measuring 10%. The patient reports nausea during the infusion of CCK. IMPRESSION: No biliary obstruction. Decreased gallbladder ejection fraction consistent with biliary dyskinesia. Symptomatology as described. Signer Name: Jerome Westbrook Jr, MD Signed: 02/08/2019 11:45 AM Workstation Name: [id number]
== END 2019-02-08 08:07 | disposition home or self-care (01) ==
LOC: US 08:06
PROVIDERS: ATTEND Internal Medicine Gastroenterology
DX: K21.0 Gastro-esophageal reflux disease with esophagitis (principal); K80.20 Calculus of gallbladder without cholecystitis without obstruction; R16.0 Hepatomegaly, not elsewhere classified
CPT/HCPCS: 76705; 78227; A9537; J2805

== ENCOUNTER 2019-05-08 08:45 | Outpatient (CLI) | payer BC ==
--- NOTE | 2019-05-08 11:24 | Mammography Report ---
DIGITAL SCREENING MAMMOGRAM WITH CAD, 05/08/2019 INDICATION: Routine screening mammography. TECHNIQUE: Digital bilateral 2D mammography was obtained in the craniocaudal and mediolateral obliq ue projections. This examination was interpreted with the benefit of Computer-Aided Detection analysi s. COMPARISON: 01/12/2018 FINDINGS: Breast Density: The breasts are almost entirely fatty. There is no evidence of dominant mass, suspicious calcifications or architectural distortion in eithe r breast. IMPRESSION: No mammographic evidence of malignancy. Follow up recommendation: Routine yearly BI-RADS Category 2: Benign. A "normal" or negative report should not discourage follow up or biopsy of a clinically significant f inding. A written summary of these findings will be mailed to the patient. The patient will be entered into a mammography reporting system which will generate a reminder letter for the patient's next appointmen t at the appropriate interval. The [employer] recommends yearly mammograms starting at age 40 and continuing as l brit as a woman is in good health. Breast MRI is recommended for women with an approximate 20-25% or greater lifetime risk of breast cancer, including women with a strong family history of breast or ova sarah cancer or who have been treated for Hodgkin's disease. Signer Name: Kendall Armando MD Signed: 05/08/2019 11:20 AM Workstation Name: [id number]
== END 2019-05-08 08:46 | disposition home or self-care (01) ==
LOC: MAMMO 08:45
PROVIDERS: ATTEND Obstetrics & Gynecology
DX: Z12.31 Encounter for screening mammogram for malignant neoplasm of breast (principal); N64.89 Other specified disorders of breast
CPT/HCPCS: 77067

== ENCOUNTER 2020-05-13 06:59 | Outpatient (CLI) | payer BC ==
--- NOTE | 2020-05-13 09:16 | Mammography Report ---
DIGITAL SCREENING MAMMOGRAM WITH CAD, 05/13/2020 CLINICAL INFORMATION / INDICATION: Routine screening mammography. SCREENING TECHNIQUE: Digital bilateral 2D mammography was obtained in the craniocaudal and mediolateral obliqu e projections. This examination was interpreted with the benefit of Computer-Aided Detection analysis . COMPARISON: 05/08/2019, 01/12/2018 FINDINGS: Breast Density: The breasts are almost entirely fatty. No dominant mass, suspicious calcifications, or architectural distortion in either breast. IMPRESSION: No mammographic evidence of malignancy. Follow up recommendation: Routine yearly BI-RADS Category 1: Negative. A "normal" or negative report should not discourage follow up or biopsy of a clinically significant f inding. A written summary of these findings will be mailed to the patient. The patient will be entered into a mammography reporting system which will generate a reminder letter for the patient's next appointmen t at the appropriate interval. The [employer] recommends yearly mammograms starting at age 40 and continuing as l brit as a woman is in good health. Breast MRI is recommended for women with an approximate 20-25% or greater lifetime risk of breast cancer, including women with a strong family history of breast or ova sarah cancer or who have been treated for Hodgkin's disease. Signer Name: Elmira Lagunas MD Signed: 05/13/2020 9:12 AM Workstation Name: [id number]
== END 2020-05-13 07:00 | disposition home or self-care (01) ==
LOC: MAMMO 06:59
PROVIDERS: ATTEND Obstetrics & Gynecology
DX: Z12.31 Encounter for screening mammogram for malignant neoplasm of breast (principal)
CPT/HCPCS: 77067

== ENCOUNTER 2021-05-14 09:57 | Outpatient (CLI) | payer BC ==
--- NOTE | 2021-05-14 11:34 | Mammography Report ---
DIGITAL SCREENING MAMMOGRAM WITH CAD, 05/14/2021 CLINICAL INFORMATION / INDICATION: Routine screening mammography. SCREENING MAMMOGRAM TECHNIQUE: Digital bilateral 2D mammography was obtained in the craniocaudal and mediolateral obliqu e projections. This examination was interpreted with the benefit of Computer-Aided Detection analysis . COMPARISON: 01/12/2018 through 05/13/2020. FINDINGS: Breast Density: The breasts are almost entirely fatty. No dominant mass, suspicious calcifications, or architectural distortion in either breast. Mild asymmetric breast tissue/benign-appearing nodularity in the left upper outer quadrant posteriorl y is stable. IMPRESSION: No mammographic evidence of malignancy. Follow up recommendation: Routine yearly BI-RADS Category 2: BENIGN. A "normal" or negative report should not discourage follow up or biopsy of a clinically significant f inding. A written summary of these findings will be mailed to the patient. The patient will be entered into a mammography reporting system which will generate a reminder letter for the patient's next appointmen t at the appropriate interval. The [employer] recommends yearly mammograms starting at age 40 and continuing as l brit as a woman is in good health. Breast MRI is recommended for women with an approximate 20-25% or greater lifetime risk of breast cancer, including women with a strong family history of breast or ova sarah cancer or who have been treated for Hodgkin's disease. Signer Name: Martinez Waller MD Signed: 05/14/2021 11:29 AM Workstation Name: [id number]
== END 2021-05-14 09:58 | disposition home or self-care (01) ==
LOC: MAMMO 09:57
PROVIDERS: ATTEND Obstetrics & Gynecology
DX: Z12.31 Encounter for screening mammogram for malignant neoplasm of breast (principal)
CPT/HCPCS: 77067